=== PATIENT | female | born 1990 | race American Indian/Alaskan Native ===

== ENCOUNTER 2021-10-09 18:36 | Emergency (ER) | payer SELFPAY ==
[2021-10-09 18:41] VITALS: BP 118/70
[2021-10-09] MEDS ORDERED: ACETAMINOPHEN 325 MG TAB PO ONE (19:28)
[2021-10-09 19:51] LABS: Basophils % (Auto) 0.6 % (0.0-1.8); Eosinophils % (Auto) 0.5 % (0.0-4.3); Hematocrit 39.1 % (30.3-42.9); Hemoglobin 12.9 gm/dl (10.1-14.3); Lymphocytes # (Auto) 1.8 K/mm3 (1.2-5.4); Mean Corpuscular HGB Conc 33 % (30-34); Mean Corpuscular Volume 95 fl (79-97); Monocytes # (Auto) 0.6 K/mm3 (0.0-0.8); Monocytes % (Auto) 8.7 % (0.0-7.3); Platelet Count 443 K/mm3 (140-440); Red Blood Count 4.13 M/mm3 (3.65-5.03); Red Cell Distribution Width 13.8 % (13.2-15.2)
[2021-10-09 20:13] LABS: Alanine Aminotransferase 14 units/L (7-56); Albumin 4.8 g/dL (3.9-5); BUN/Creatinine Ratio 17; Blood Urea Nitrogen 10 mg/dL (7-17); Calcium 10.3 mg/dL (8.4-10.2); Hemolysis Index 25
[2021-10-09 20:26] LABS: Bilirubin,Urine NEG (Negative); Blood,Urine NEG (Negative); Color,Urine Yellow (Yellow); Mucus,Urine 2+ /HPF; Protein,Urine <15 mg/dL mg/dL (Negative); Urobilinogen,Urine < 2.0 mg/dL (<2.0); WBC,Urine < 1.0 /HPF (0.0-6.0)
--- NOTE | 2021-10-09 21:58 | Emergency Department Report ---
<ANIBAL MASTERS - Last Filed: 10/09/21 22:03> ED HPI - General Chief complaint: Medical Clearance Stated complaint: AND NOT SLEEPING Time Seen by Provider: 10/09/21 19:18 Source: patient Mode of arrival: Ambulatory Limitations: No Limitations - History of Present Illness Initial comments: 30-year-old -Mong[place] female who is 4 para 3 presents to the emergency room complaining of being and not able to sleep. Patient states that she has not had a confirmation of . She reports that she checked a test at home 1 week ago. Patient has not had any care at this time. She reports that her last menstrual period was August 14. She denies any vaginal bleeding no vaginal discharge does report some mild pelvic pain. She states she is not able to sleep. She does have nausea and vomiting denies any headache. She reports she has not been able to eat in 3 days. Currently takes no meds. Onset/Timin -: days(s) Location: pelvis (Mild pelvic discomfort) Radiation: suprapubic Severity: mild Severity scale (0 -10): 2 Quality: aching Consistency: intermittent Improves with: none Worsens with: none Associated symptoms: nausea/vomiting, other (Insomnia) Vaginal bleeding: none :: Yes - Related Data Previous Rx's Medication Instructions Recorded Last Taken Type Acetaminophen [Pain Relief Extra 500 - 1,000 mg PO Q6H PRN #30 10/10/21 Unknown Rx Strength] tablet diphenhydrAMINE [Benadryl CAP] 25 - 50 mg PO QHS PRN #30 capsule 10/10/21 Unknown Rx Allergies Allergy/AdvReac Type Severity Reaction Status Date / Time morphine Allergy Itching Verified 10/09/21 18:38 ED Review of Systems Comment: All other systems reviewed and negative ED Past Medical Hx - Past Medical History Previous Medical History?: No - Surgical History Additional Surgical History: CSECTION - Medications Home Medications: Home Medications Medication Instructions Recorded Confirmed Last Taken Type Acetaminophen [Pain Relief Extra 500 - 1,000 mg PO Q6H PRN #30 10/10/21 Unknown Rx Strength] tablet diphenhydrAMINE [Benadryl CAP] 25 - 50 mg PO QHS PRN #30 capsule 10/10/21 Unknown Rx ED Physical Exam - General Limitations: No Limitations General appearance: alert, in no apparent distress - Head Head exam: Present: atraumatic, normocephalic - Eye Eye exam: Present: normal appearance - ENT ENT exam: Present: mucous membranes moist - Neck Neck exam: Present: normal inspection - Respiratory Respiratory exam: Present: normal lung sounds bilaterally. Absent: respiratory distress - Cardiovascular Cardiovascular Exam: Present: regular rate, normal rhythm. Absent: systolic murmur, diastolic murmur, rubs, gallop - GI/Abdominal GI/Abdominal exam: Present: soft, tenderness (Suprapubic), normal bowel sounds - Extremities Exam Extremities exam: Present: normal inspection - Back Exam Back exam: Present: normal inspection - Neurological Exam Neurological exam: Present: alert, oriented X3 - Psychiatric Psychiatric exam: Present: normal affect, normal mood - Skin Skin exam: Present: warm, dry, intact, normal color. Absent: rash ED Medical Decision Making - Lab Data Result diagrams: 10/09/21 19:31 10/09/21 19:31 - Medical Decision Making 30-year-old -[place]ong[place] female who is 4 para 3 presents to the emergency room complaining of being and not able to sleep. Patient states that she has not had a confirmation of . She reports that she checked a test at home 1 week ago. Patient has not had any care at this time. She reports that her last menstrual period was August 14. She denies any vaginal bleeding no vaginal discharge does report some mild pelvic pain. She states she is not able to sleep. She does have nausea and vomiting denies any headache. She reports she has not been able to eat in 3 days. Currently takes no meds. CBC CMP ED RhoGam urinalysis hCG ultrasound The patient's care has been transferred to and accepted by[ Carlos Baker Pa-C}. We discussed: The patient's chief complaints; labs and imaging that have been completed and those that are still pending; any treatment provided and the patie nt's response to treatment; any significant change in condition; the treatment plan prior to the transfer of care. The accepting provider will follow up on all pending labs and imaging and make any necessary changes to the current impression and/or treatment plan. The accepting physician/midlevel is now responsible for the patient's care and final disposition. ED Disposition Clinical Impression: Sleep trouble, Abdominal pain during in third trimester Disposition: 01 HOME / SELF CARE / HOMELESS Condition: Stable Prescriptions: diphenhydrAMINE [Benadryl CAP] 25 - 50 mg PO QHS PRN #30 capsule PRN Reason: insomnia Acetaminophen [Pain Relief Extra Strength] 500 - 1,000 mg PO Q6H PRN #30 tablet PRN Reason: pain Referrals: [facility] [Provider Group] - 2-3 Days [facility] [Provider Group] - 2-3 Days [facility] [Provider Group] - 2-3 Days Forms: Work/School Release Form(ED), Accompanied Note <CARLOS CAGE - Last Filed: 10/10/21 00:27> ED Review of Systems ROS: Stated complaint: AND NOT SLEEPING Other details as noted in HPI ED Course Vital Signs 10/09/21 18:39 Temperature 98.4 F Pulse Rate 81 Respiratory 20 Rate Blood Pressure 118/70 O2 Sat by Pulse 100 Oximetry ED Medical Decision Making - Lab Data Result diagrams: 10/09/21 19:31 10/09/21 19:31 - Radiology Data Radiology results: report reviewed ULTRASOUND PELVIS INDICATION: preg pelvic pain. TECHNIQUE: Transabdominal. Transvaginal Duplex Color Doppler used: Yes. COMPARISON: None available FINDINGS: Uterus: Present. Size: 10.6 x 6.7 x 6.9 cm. Endometrial complex: Early intrauterine dated 8 weeks 1 day by ultrasound. heart tones are 154 bpm. Mass lesions: None. Additional findings: None. Right Ovary -- Normal. Blood flow: Normal. Cyst or mass: None. Left Ovary--nonvisualized. Urinary Bladder: Normal. Free Fluid: None. Additional Findings: None. IMPRESSION: 1. Early viable intrauterine dated 18 weeks 1 day. 2. Left ovary not visualized. No adnexal abnormality. - Medical Decision Making Patient handed over to me by Patricia Masters PA-C pending ultrasound. Patient continues to deny any vaginal discharge, dyspareunia. Pain improved with Tylenol given here in ED. Ultrasound shows 18-week 1 day IUP without acute abnormalities. Patient provided with referrals to [facility] as an informed to follow-up within the next 2 to 3 days. Recommend OTC Benadryl 25 to 50 mg nightly as needed for sleep. Discussed in detail signs and symptoms that should prompt immediate return to the ED, patient verbalizes understanding. Critical care attestation.: If time is entered above; I have spent that time in minutes in the direct care of this critically ill patient, excluding procedure time. ED Disposition Is pt being admited?: No
[2021-10-09] MEDS ORDERED: ACETAMINOPHEN W/CODEINE 300-30 MG TAB PO ONE (23:43)
--- NOTE | 2021-10-10 00:17 | Ultrasound Report ---
ULTRASOUND PELVIS INDICATION: preg pelvic pain. TECHNIQUE: Transabdominal. Transvaginal Duplex Color Doppler used: Yes. COMPARISON: None available FINDINGS: Uterus: Present. Size: 10.6 x 6.7 x 6.9 cm. Endometrial complex: Early intrauterine dated 8 weeks 1 day by ultrasound. heart tone s are 154 bpm. Mass lesions: None. Additional findings: None. Right Ovary -- Normal. Blood flow: Normal. Cyst or mass: None. Left Ovary--nonvisualized. Urinary Bladder: Normal. Free Fluid: None. Additional Findings: None. IMPRESSION: 1. Early viable intrauterine dated 18 weeks 1 day. 2. Left ovary not visualized. No adnexal abnormality. Signer Name: Alexx Saba MD Signed: 10/10/2021 12:12 AM Workstation Name: [id number]
== END 2021-10-10 00:38 | disposition home or self-care (01) ==
LOC: ED 18:36
DX: O99.352 Diseases of the nervous system complicating pregnancy, second trimester (principal); G47.00 Insomnia, unspecified; O26.93 Pregnancy related conditions, unspecified, third trimester; R10.9 Unspecified abdominal pain; O26.892 Other specified pregnancy related conditions, second trimester; Z3A.18 18 weeks gestation of pregnancy
CPT/HCPCS: 36415; 76801; 76817; 80053; 81001; 84702; 85025; 86900; 86901; 99284